=== PATIENT | male | born 1945 | race Asian ===

== ENCOUNTER 2021-03-01 16:31 | Emergency (ER) | payer MEDICARE, OTHER ==
[~2021-03-01] VITALS: Ht 165.1 cm; Wt 84.1 kg
[2021-03-01] MEDS ORDERED: ALLO100T2 PO (16:39)
[2021-03-01] MEDS ORDERED: APIX5TAB PO (16:39)
[2021-03-01] MEDS ORDERED: ROSU10TA72 PO (16:39)
[2021-03-01] MEDS ORDERED: CHOL100044 PO (16:39)
[2021-03-01] MEDS ORDERED: BENA5TAB26 PO (16:39)
[2021-03-01] MEDS ORDERED: METO25 PO (16:39)
[2021-03-01] MEDS ORDERED: COLCHICINE 0.6 MG TABLET PO ONE (18:15)
[2021-03-01] MEDS ORDERED: BENA20TA11 PO (18:16)
[2021-03-01] MEDS ORDERED: DEXAMETHASONE 4 MG TABLET PO ONE (18:30)
[2021-03-01] MEDS ORDERED: IBUPROFEN 600 MG TABLET PO ONE (18:30)
[2021-03-01 19:30] VITALS: BP 146/89
== END 2021-03-01 22:07 | disposition home or self-care (01) ==
LOC: EMS 16:31
DX: M10.9 Gout, unspecified (principal); I10 Essential (primary) hypertension; E78.00 Pure hypercholesterolemia, unspecified
CPT/HCPCS: 99283; J8540